=== PATIENT | female | born 1985 ===

== ENCOUNTER 2021-02-28 06:00 | Outpatient (RCR) | payer OTHER, SELFPAY | END 2021-03-25 23:59 | disposition home or self-care (01) | LOC: SPT 06:00 | PROVIDERS: Family Provider Nurse Practitioner Family; PCP Nurse Practitioner Family; Referring Provider Nurse Practitioner Family; Visit Provider Nurse Practitioner Family | DX: M25.512 Pain in left shoulder (principal) | CPT/HCPCS: 97110; 97140; 97162 ==

== ENCOUNTER 2021-03-26 06:00 | Outpatient (RCR) | payer OTHER, SELFPAY | END 2021-04-24 23:59 | disposition home or self-care (01) | LOC: SPT 06:00 | PROVIDERS: Family Provider Nurse Practitioner Family; PCP Nurse Practitioner Family; Referring Provider Nurse Practitioner Family; Visit Provider Nurse Practitioner Family | DX: M25.512 Pain in left shoulder (principal) | CPT/HCPCS: 97110; 97140; 97164 ==

== ENCOUNTER 2021-08-13 06:00 | Outpatient (RCR) | payer OTHER, SELFPAY | END 2021-08-25 23:59 | disposition home or self-care (01) | LOC: TPT 06:00 | PROVIDERS: PCP Nurse Practitioner Family; Referring Provider Nurse Practitioner Family; Visit Provider Nurse Practitioner Family | DX: S89.92XD Unspecified injury of left lower leg, subsequent encounter (principal); X58.XXXD Exposure to other specified factors, subsequent encounter; M25.562 Pain in left knee; M25.462 Effusion, left knee | CPT/HCPCS: 97110; 97162; 97164 ==

== ENCOUNTER 2021-08-26 06:00 | Outpatient (RCR) | payer OTHER, SELFPAY | END 2021-09-24 23:59 | disposition home or self-care (01) | LOC: TPT 06:00 | PROVIDERS: PCP Nurse Practitioner Family; Referring Provider Nurse Practitioner Family; Visit Provider Nurse Practitioner Family | DX: M51.34 Other intervertebral disc degeneration, thoracic region (principal) | CPT/HCPCS: 97032; 97110 ==

== ENCOUNTER 2021-09-25 06:00 | Outpatient (RCR) | payer OTHER, SELFPAY | END 2021-10-25 23:59 | disposition home or self-care (01) | LOC: TPT 06:00 | PROVIDERS: PCP Nurse Practitioner Family; Referring Provider Nurse Practitioner Family; Visit Provider Nurse Practitioner Family | DX: M51.34 Other intervertebral disc degeneration, thoracic region (principal) | CPT/HCPCS: 97110; 97164 ==

== ENCOUNTER 2021-10-26 06:00 | Outpatient (RCR) | payer OTHER, SELFPAY | END 2021-11-25 23:59 | disposition home or self-care (01) | LOC: TPT 06:00 | PROVIDERS: PCP Nurse Practitioner Family; Referring Provider Nurse Practitioner Family; Visit Provider Nurse Practitioner Family | DX: M51.34 Other intervertebral disc degeneration, thoracic region (principal) | CPT/HCPCS: 97110 ==